=== PATIENT | male | born 1965 | race Caucasian/White ===

== ENCOUNTER → 2016-07-16 | Day surgery (SDC) | payer OTHER, BC ==
[~2016-07-16] VITALS: Ht 172.7 cm; Wt 120.2 kg
[~2016-07-16] MED LIST: ATOR1TAB21 PO; BALS75CA PO; CELE40TA PO; EPINEPHrine 1MG/ML INJ 30ML MD-VIAL As Ordered ONE; FENO145T PO; GLYCOPYRROLATE INJ 0.2 MG/ML 2 ML VIAL As Ordered ONE; LIDOCAINE 1% MDV INJ 50 ML VIAL As Ordered ONE; LIDOCAINE 2% INJ 100 MG/5 ML SDV (FOR ANES.) As Ordered ONE; LR 1,000 ML IV SCH; MERC50TA2 PO; MIDAZOLAM INJ 2 MG/2 ML VIAL (J2250) As Ordered ONE; MIDAZOLAM INJ 2 MG/2 ML VIAL (J2250) IV ONE; MORPHINE 2 MG/ML 1ML SYRINGE IV PRN; MORPHINE 4 MG/ML 1ML SYRINGE IV PRN; NEOSTIGMINE 1MG/ML 5 ML SYRINGE (J2710) As Ordered ONE; NORCO, ANEXSIA 5/325MG TABLET (HYDROcodone/ACETAMINOPHEN) PO PRN; OMEP20CA3 PO; ONDANSETRON 4MG/2ML VIAL (J2405) As Ordered ONE; ONDANSETRON 4MG/2ML VIAL (J2405) IV PRN; PHENYLephrine HCL 500 MCG/5 ML (100MCG/ML) SYRINGE (J2370) As Ordered ONE; PROPOFOL 200 MG/20 ML VIAL As Ordered ONE; ROCURONIUM BROMIDE 50 MG/5 ML VIAL As Ordered ONE; ePHEDrine SULFATE 25 MG/5 ML(5MG/ML) SYRINGE As Ordered ONE; fentaNYL 100 MCG/2 ML INJECTION (J3010) As Ordered ONE; fentaNYL 100 MCG/2 ML INJECTION (J3010) IV ONE; fentaNYL 100 MCG/2 ML INJECTION (J3010) IV PRN
[2016-07-16 16:20] VITALS: BP 140/82
--- NOTE | 2016-07-16 18:41 | RO ---
DATE OF PROCEDURE: 07/16/2016 PREPROCEDURE DIAGNOSIS: Left shoulder biceps tendonitis and rotator cuff tendonitis and acromioclavicular (AC) joint arthritis. POSTPROCEDURE DIAGNOSIS: Left shoulder biceps tendonitis and rotator cuff tendonitis and acromioclavicular (AC) joint arthritis. PROCEDURE: 1. Left shoulder arthroscopic biceps tenotomy. 2. Left shoulder arthroscopic subacromial decompression. 3. Left shoulder arthroscopic distal clavicle excision. SURGEON: Dr. Melony Rutledge [employer] INSPECTOR: ANESTHESIA: General endotracheal tube anesthesia with left interscalene nerve block. COMPLICATIONS: None. ESTIMATED BLOOD LOSS: Less than 20 mL. FINDINGS: He had just a remnant of the biceps still attached with its mild degenerative SLAP tear noted. Subscapularis was intact. The articular cartilage, surface of the glenohumeral joint were intact. There was no rotator cuff tear identified intra-articularly or no other labral pathology. In the subacromial space, however, he had a significant amount of fraying at the myotendinous junction of the supraspinatus muscle, but the tendon was intact to the greater tuberosity. There was a large anterior acromial spur and the AC joint was quite degenerative. DESCRIPTION OF PROCEDURE: Antibiotics were given intravenously preoperatively, then successful left interscalene nerve and general endotracheal tube anesthetic was established. She was placed in a semi-beach chair position, Spider shoulder amezquita was utilized. The left shoulder area was prepped and draped in the usual sterile fashion. Then, after appropriate time out, routine diagnostic arthroscopy was performed through a posterior portal with the findings as noted above. I released the remnant of the biceps tendon with the ablator wand, then debrided the remnant off the superior glenoid as well as the superior glenoid labral tearing. Subscapularis was intact. The rotator cuff was inspected and found not to be torn. I then placed the scope in the subacromial space. He had an excessive amount of bursa. I established a lateral and an anterior working and eventually I was able to clear the bursal tissue and identified that there was significant fraying of the muscle of the supraspinatus tendon at the myotendinous junction, but there was no true rotator cuff. I worked my way over carefully to the AC joint and saw, indeed, that the clavicle appeared to be quite arthritic with some fibrotic tissue that was loose within the joint. Once I had had exposure of the subacromial space and the anterior acromial spur by using a combination of the #4-0 curved shaver and the ablator wand, I was able to introduce the 4.0 bur and performed a distal clavicle excision. Once that was debrided back appropriately and adequately, I proceeded to go more anterior and lateral with the bur across the anterior edge of the acromion as this was a formal subacromial decompression. I documented this photographically before and afterward. At this point, finding no other arthroscopy treatable pathology, I copiously irrigated out the subacromial space and then closed the arthroscopy portals with a #3-0 nylon suture, covered the wounds with Adaptic dry sterile bulky dressing. He was then awakened from general endotracheal tube anesthesia after having tolerated the procedure well, transferred to the recovery room in stable condition. There were no intraoperative complications.
== END ==
LOC: M SDC 07:21
PROVIDERS: ATTEND Orthopaedic Surgery
DX: M75.22 Bicipital tendinitis, left shoulder (principal); M65.812 Other synovitis and tenosynovitis, left shoulder; M19.012 Primary osteoarthritis, left shoulder; I10 Essential (primary) hypertension; E78.5 Hyperlipidemia, unspecified; M10.9 Gout, unspecified; K51.90 Ulcerative colitis, unspecified, without complications; K21.9 Gastro-esophageal reflux disease without esophagitis; F41.9 Anxiety disorder, unspecified; F32.9 Major depressive disorder, single episode, unspecified; G47.30 Sleep apnea, unspecified; J30.89 Other allergic rhinitis; F17.220 Nicotine dependence, chewing tobacco, uncomplicated; Z79.899 Other long term (current) drug therapy
CPT/HCPCS: 29824; 29826; 29828; 64415; J0690; J2250; J2370; J2405; J2710; J3010

== ENCOUNTER → 2017-04-17 | Outpatient (REF) | payer BC ==
[~2017-04-17] MED LIST changes: -EPINEPHrine 1MG/ML INJ 30ML MD-VIAL As Ordered ONE; -GLYCOPYRROLATE INJ 0.2 MG/ML 2 ML VIAL As Ordered ONE; -LIDOCAINE 1% MDV INJ 50 ML VIAL As Ordered ONE; -LIDOCAINE 2% INJ 100 MG/5 ML SDV (FOR ANES.) As Ordered ONE; -LR 1,000 ML IV SCH; -MIDAZOLAM INJ 2 MG/2 ML VIAL (J2250) As Ordered ONE; -MIDAZOLAM INJ 2 MG/2 ML VIAL (J2250) IV ONE; -MORPHINE 2 MG/ML 1ML SYRINGE IV PRN; -MORPHINE 4 MG/ML 1ML SYRINGE IV PRN; -NEOSTIGMINE 1MG/ML 5 ML SYRINGE (J2710) As Ordered ONE; -NORCO, ANEXSIA 5/325MG TABLET (HYDROcodone/ACETAMINOPHEN) PO PRN; -ONDANSETRON 4MG/2ML VIAL (J2405) As Ordered ONE; -ONDANSETRON 4MG/2ML VIAL (J2405) IV PRN; -PHENYLephrine HCL 500 MCG/5 ML (100MCG/ML) SYRINGE (J2370) As Ordered ONE; -PROPOFOL 200 MG/20 ML VIAL As Ordered ONE; -ROCURONIUM BROMIDE 50 MG/5 ML VIAL As Ordered ONE; -ePHEDrine SULFATE 25 MG/5 ML(5MG/ML) SYRINGE As Ordered ONE; -fentaNYL 100 MCG/2 ML INJECTION (J3010) As Ordered ONE; -fentaNYL 100 MCG/2 ML INJECTION (J3010) IV ONE; -fentaNYL 100 MCG/2 ML INJECTION (J3010) IV PRN
== END ==
LOC: M LAB REF 14:50
PROVIDERS: ATTEND Physician Assistant
DX: J02.9 Acute pharyngitis, unspecified (principal)

== ENCOUNTER → 2018-03-03 | Outpatient (CLI) | payer BC | LOC: M RAD 17:39 | DX: N40.0 Benign prostatic hyperplasia without lower urinary tract symptoms (principal); N18.3 Chronic kidney disease, stage 3 (moderate); K51.918 Ulcerative colitis, unspecified with other complication; D64.9 Anemia, unspecified; R31.9 Hematuria, unspecified | CPT/HCPCS: 76775 ==

== ENCOUNTER → 2019-05-02 | Outpatient (REF) | payer BC ==
[~2019-05-02] MED LIST changes: -FENO145T PO; +FENO145T13 PO; +OMEP-172 PO; -OMEP20CA3 PO
[2019-05-02 18:52] LABS: BLOOD UREA NITROGEN 20 MG/DL (7-18); CALCIUM LEVEL 9.2 MG/DL (8.5-10.1); CARBON DIOXIDE LEVEL 29 MEQ/L (21-32); CHLORIDE LEVEL 109 MEQ/L (98-107); CREATININE FOR GFR 1.28 MG/DL (0.70-1.30); GLOMERULAR FILTRATION RATE > 60.0 (>56); GLUCOSE, FASTING 57 MG/DL (70-100); MAGNESIUM LEVEL 2.4 MG/DL (1.8-2.4); PHOSPHORUS LEVEL 2.4 MG/DL (2.5-4.9); POTASSIUM SERUM 4.2 MEQ/L (3.5-5.1); SODIUM LEVEL 144 MEQ/L (136-145); URIC ACID 4.3 MG/DL (3.5-7.2)
== END ==
LOC: M LAB REF 17:49
PROVIDERS: ATTEND Internal Medicine Nephrology
DX: N18.3 Chronic kidney disease, stage 3 (moderate) (principal)

== ENCOUNTER → 2020-04-24 | Outpatient (CLI) | payer BC ==
[~2020-04-24] MED LIST changes: +COLC1TAB14 PO; -FENO145T13 PO; +FENO145T7 PO; +FINA5TAB2 PO; +FLOM0.4C39 PO; +LOSA50TA88 PO; -OMEP-172 PO; +OMEP1CAP73 PO; +SERT-138
== END ==
LOC: M LABSMTC 10:04
PROVIDERS: ATTEND Anesthesiology
DX: Z01.812 Encounter for preprocedural laboratory examination (principal); Z20.828 Contact with and (suspected) exposure to other viral communicable diseases

== ENCOUNTER 2020-04-29 06:53 | Day surgery (SDC) | payer BC ==
[~2020-04-29] VITALS: Ht 167.6 cm; Wt 120.7 kg
[~2020-04-29 06:53] MED LIST changes: +NS 1,000 ML IV ONE
[2020-04-29] MEDS ORDERED: LIDOCAINE 2% 100MG/5ML SDV (FOR ANES.) As Ordered ONE (08:54)
[2020-04-29] MEDS ORDERED: propofoL 200 MG/20 ML VIAL As Ordered ONE (08:54)
--- NOTE | 2020-04-29 09:18 | ROOR ---
Patient Name: Naveen Menjivar Procedure Date: 04/29/2020 8:32 AM Date of : 1965 Age: 54 Room: [facility] Gender: Male Note Status: Finalized Procedure: Colonoscopy Indications: Screening for colorectal malignant neoplasm, Incidental - Suspected ulcerative colitis Providers: Lucien Fall MD Referring MD: Tawanda Majano Md Requesting Provider: Medicines: Monitored Anesthesia Care Complications: No immediate complications. Procedure: Pre-Anesthesia Assessment: - Prior to the procedure, a History and Physical was performed, and patient medications and allergies were reviewed. The patient is competent. The risks and benefits of the procedure and the sedation options and risks were discussed with the patient. All questions were answered and informed consent was obtained. Patient identification and proposed procedure were verified by the physician, the nurse and the anesthesiologist in the procedure room. Mental Status Examination: alert and oriented. Prophylactic Antibiotics: The patient does not require prophylactic antibiotics. Prior Anticoagulants: The patient has taken no previous anticoagulant or antiplatelet agents. ASA Grade Assessment: II - A patient with mild systemic disease. After reviewing the risks and benefits, the patient was deemed in satisfactory condition to undergo the procedure. The anesthesia plan was to use monitored anesthesia care (MAC). Immediately prior to administration of medications, the patient was re-assessed for adequacy to receive sedatives. The heart rate, respiratory rate, oxygen saturations, blood pressure, adequacy of pulmonary ventilation, and response to care were monitored throughout the procedure. The physical status of the patient was re-assessed after the procedure. The Colonoscope was introduced through the anus and advanced to the terminal ileum, with identification of the appendiceal orifice and IC valve. The colonoscopy was performed without difficulty. The patient tolerated the procedure well. The quality of the bowel preparation was good. The terminal ileum, ileocecal valve, appendiceal orifice, and rectum were photographed. Scope insertion time was 2 minutes. Scope withdrawal time was 9 minutes. The total duration of the procedure was 11 minutes. Findings: The perianal and digital rectal examinations were normal. The terminal ileum appeared normal. Four sessile polyps were found in the ascending colon and cecum. The polyps were 4 to 6 mm in size. These polyps were removed with a cold snare. Resection and retrieval were complete. Verification of patient identification for the specimen was done by the physician and nurse using the patient's name, date and medical record number. Estimated blood loss was minimal. A scattered area of moderately erythematous mucosa was found in the recto-sigmoid colon. Non-bleeding external and internal hemorrhoids were found during retroflexion. The hemorrhoids were medium-sized. Impression: - The examined portion of the ileum was normal. - Four 4 to 6 mm polyps in the ascending colon and in the cecum, removed with a cold snare. Resected and retrieved. - Erythematous mucosa in the recto-sigmoid colon. - Non-bleeding external and internal hemorrhoids. Recommendation: - Patient has a contact number available for emergencies. The signs and symptoms of potential delayed complications were discussed with the patient. Return to normal activities tomorrow. Written discharge instructions were provided to the patient. - High fiber diet. - Continue present medications. - Await pathology results. - Repeat colonoscopy in 3 - 5 years for surveillance based on pathology results. - Telephone GI clinic for pathology results in 2 weeks. - Return to primary care physician. Procedure Code(s): --- Professional --- 37205, Colonoscopy, flexible; with removal of tumor(s), polyp(s), or other lesion(s) by snare technique Diagnosis Code(s): --- Professional --- Z12.11, Encounter for screening for malignant neoplasm of colon K64.8, Other hemorrhoids K63.5, Polyp of colon K63.89, Other specified diseases of intestine CPT copyright 2019 [employer]. All rights reserved. The codes documented in this report are preliminary and upon scalp treatment operator review may be revised to meet current compliance requirements. Lucien Fall MD Lucien Fall MD 04/29/2020 9:18:38 AM Electronically signed by Lucien Fall MD Number of Addenda: 0 Note Initiated On: 04/29/2020 8:32 AM Estimated Blood Loss: Estimated blood loss was minimal.
[2020-04-29 09:25] VITALS: BP 147/93
== END 2020-04-29 09:40 | disposition home or self-care (01) ==
LOC: M OPP 06:53
PROVIDERS: ATTEND Internal Medicine Gastroenterology
DX: Z12.11 Encounter for screening for malignant neoplasm of colon (principal); K64.8 Other hemorrhoids; K63.5 Polyp of colon; K63.89 Other specified diseases of intestine

== ENCOUNTER → 2021-02-21 | Outpatient (REF) | payer BC ==
[~2021-02-21] MED LIST changes: -NS 1,000 ML IV ONE
== END ==
LOC: M LAB REF 16:40
PROVIDERS: ATTEND Nurse Practitioner Family
DX: N18.31 Chronic kidney disease, stage 3a (principal)